=== PATIENT | female | born 1935 | race Caucasian/White ===

== ENCOUNTER 2019-02-27 14:57 | Emergency (ER) | payer MEDICARE, BC ==
[2019-02-27 15:40] VITALS: BP 121/81; PULSE 99
[2019-02-27] MEDS ORDERED: HYDROmorphone 0.5 MG/0.5 ML Syringe IM ONE (15:50)
--- NOTE | 2019-02-27 16:42 | CT ---
Head CT Technique: Multiple axial sections through the brain were obtained. Intravenous contrast was not utilized. Comparison: Prior head CT study of 08/05/1915. Findings: Ventricles along with basal cisterns and sulci over the convexities are mildly prominent. Mild areas of diminished density are scattered within the periventricular and subcortical white matter which are most likely due to small vessel ischemic demyelination change. No other abnormal parenchymal densities are seen. No evidence of intracranial hemorrhage. No midline shift or mass effect is seen. Atherosclerotic calcification is seen within the carotid siphon. Mastoid sinuses that are seen appear clear. Visualized paranasal sinuses shows an air-fluid level within the left maxillary sinus. No acute calvarial abnormality is seen. Impression: 1. Air-fluid level within the left maxillary sinus. This can relate to sinusitis as well as retained secretions. Please correlate if patient has any infectious symptoms. If no infectious symptoms are present, this is most likely incidental. 2. Mild senescent change as noted above which is similar to prior head CT study. 3. No acute intracranial abnormality is identified. Diagnostic code #3
--- NOTE | 2019-02-27 16:45 | CT ---
CT cervical spine Technique: Multiple axial sections were obtained from above the C1 level inferiorly through the mid T2 level. Reconstructed sagittal and coronal images were reviewed. Findings: Degenerative change is noted between the dens and anterior arch of C1. Mild disc space narrowing at C4-5 with severe disc space narrowing at C5-6 and moderate to severe disc space narrowing at C6-7. Posterior osteophytes are seen at C4-5 through C6-7. Anterior osteophytes are noted at the C3-4 level through the C6-7 level. Mild ligamentum nuchal calcification is seen. Degenerative change is noted throughout the apophyseal joints. Moderate right-sided neural foraminal stenosis is noted at C4-5. Severe bilateral neural foraminal stenosis is noted at C5-6. Moderate right-sided neural foraminal stenosis is noted at C6-7. Mild central canal stenosis is noted at C5-6. No fracture is seen. No abnormal subluxation is noted. Impression: 1. Degenerative change as noted above. Nothing acute is appreciated on CT study of the cervical spine. Diagnostic code #2
[2019-02-27] MEDS ORDERED: Sodium Chloride 0.9% 10 ML Syringe FLUSH PRN (16:47)
[2019-02-27] MEDS ORDERED: Acetaminophen/HYDROcodone 325-5 MG Tab PO ONE (16:48)
--- NOTE | 2019-02-27 16:48 | CT ---
CT facial bones Technique: Multiple axial sections through the facial bones were obtained. Reconstructed coronal and sagittal images were reviewed. Findings: Degenerative change is noted within both temporomandibular joints. Air-fluid level again is noted within the dependent left maxillary sinus. Other paranasal sinuses are clear. Right and left globes are symmetric. No retrobulbar are abnormality is seen. No facial bone fracture is identified. Impression: 1. Small air-fluid level within the left maxillary sinus. 2. Degenerative change within the temporomandibular joints. 3. No acute bony abnormality is identified on CT study of the facial bones. Diagnostic code #2
--- NOTE | 2019-02-27 16:51 | CR ---
Chest: PA and lateral views of the chest were obtained. Comparison: No prior chest x-ray is available. Heart size is slightly enlarged. Tortuous thoracic aorta is seen. Lungs are hyperinflated compatible with emphysematous change. No acute parenchymal change is seen. Minimal scoliosis is noted. Osteopenia is present. Impression: 1. Emphysematous change. Slight cardiomegaly and tortuous thoracic aorta. 2. Nothing acute is otherwise seen on 2 view chest x-ray. Diagnostic code #2
--- NOTE | 2019-02-27 16:51 | CR ---
Left shoulder: 3 views of left shoulder were obtained. Comparison: No prior left shoulder exam. Acromioclavicular joint appears within normal limits. Glenohumeral joint shows minimal inferior spurring off the inferior and medial humeral head. No fracture, dislocation or other bony abnormality is seen. No abnormal soft tissue calcifications are seen. Impression: 1. Minimal degenerative change. Left shoulder study is otherwise unremarkable. Diagnostic code #2
--- NOTE | 2019-02-27 18:07 | EDM.PDOC ---
ED HPI GENERAL MEDICAL PROBLEM - General Chief Complaint: Head Injury Stated Complaint: FALL Time Seen by Provider: 02/27/19 15:47 Source of Information: Reports: Patient, Family History Limitations: Reports: No Limitations - History of Present Illness INITIAL COMMENTS - FREE TEXT/NARRATIVE: The patient presents with a fall. She was out working in her yard and she fell and landed on her left side. She did hit her head. She had no LOC. She does have neck pain. She also has pain in her left shoulder and left chest. She has no abdominal pain, hip or leg pain. She tripped and fell today. Onset: Sudden Duration: Minutes: Location: Reports: Head, Neck, Chest, Upper Extremity, Left (Shoulder) Quality: Reports: Sharp Severity: Moderate Improves with: Reports: None Worsens with: Reports: None Associated Symptoms: Reports: Chest Pain, Headaches. Denies: Cough, Fever/ Chills, Nausea/Vomiting, Shortness of Breath Left Chest Pain Score (Numeric/FACES): 8 Face/Facial Pain Score (Numeric/FACES): 9 - Related Data Allergies Allergy/AdvReac Type Severity Reaction Status Date / Time codeine Allergy Blurred Verified 02/27/19 15:42 Vision sulfamethoxazole Allergy Cannot Verified 08/14/15 20:49 [From Bactrim] Remember trimethoprim [From Bactrim] Allergy Cannot Verified 08/14/15 20:49 Remember Home Meds: Home Meds Ascorbate Calcium/Bioflavonoid [Marjan-C 500 MG] 500 - 1,000 mg PO DAILY [History] Aspirin 81 mg PO DAILY 08/14/15 [History] Biotin 10,000 mcg PO DAILY 08/14/15 [History] Calcium/Magnesium/Vit D3 [Calcium 500 MG] 500 mg PO DAILY 08/14/15 [History] Cholecalciferol (Vitamin D3) [Vitamin D3] 4,000 unit PO DAILY 08/14/15 [History] Cyanocobalamin (Vitamin B-12) [Vitamin B12] 2,500 mcg PO DAILY 08/14/15 [History ] Diltiazem HCl [Diltiazem 24Hr Cd] 120 mg PO DAILY 08/14/15 [History] Forteo 20 mg IM DAILY 08/14/15 [History] Ibuprofen 200 mg PO ONCALL PRN 08/14/15 [History] Krill/[place]-3/Dha/Epa/Lipids [Krill Oil 300 mg Softgel] 600 mg PO DAILY [History] L.acidoph,Paracasei, B.lactis [Probiotic] 4 - 10 unit PO DAILY 08/14/15 [History ] Levothyroxine 56 mcg PO DAILY 08/14/15 [History] Levothyroxine 112 mcg PO DAILY 08/14/15 [History] Lutein/Minerals/Vit A,C & E [Ocuvite] 1 tab PO DAILY 08/14/15 [History] Magnesium 200 mg PO DAILY 08/14/15 [History] Orphenadrine [Norflex] 1 tab PO Q12H #20 tab.er 08/14/15 [Rx] Pyridoxine HCl [Vitamin B-6] 100 mg PO DAILY 08/14/15 [History] Sennosides/Docusate Sodium [Senna-S Tablet] 1 - 2 tab PO DAILY PRN 08/14/15 [ History] Turmeric [Curcumin] 750 mg PO DAILY 08/14/15 [History] Warfarin [Coumadin] 2.5 mg PO DAILY 08/14/15 [History] Warfarin [Coumadin] 5 mg PO DAILY 08/14/15 [History] HYDROmorphone [Dilaudid] 2 mg PO Q6H PRN #10 tab 02/27/19 [Rx] Past Medical History HEENT History: Reports: Impaired Vision, Macular Degeneration Cardiovascular History: Reports: Afib, Arrhythmia, CAD, Hypertension Musculoskeletal History: Reports: Other (See Below) Other Musculoskeletal History: left knee fracture/patella-surgery Psychiatric History: Reports: Depression Endocrine/Metabolic History: Reports: Hypothyroidism - Past Surgical History GI Surgical History: Reports: Appendectomy, Colonoscopy Other GI Surgeries/Procedures: colon cancer runs ini the family; has polyps in the past Female Surgical History: Reports: Hysterectomy Musculoskeletal Surgical History: Reports: Arthroscopic Knee Social & Family History - Tobacco Use Smoking Status *Q: Never Smoker - Caffeine Use Caffeine Use: Reports: Coffee - Alcohol Use Days Per Week of Alcohol Use: 7 Number of Drinks Per Day: 1 Total Drinks Per Week: 7 - Recreational Drug Use Recreational Drug Use: No - Living Situation & Occupation Living situation: Reports: Alone Occupation: Retired ED ROS GENERAL - Review of Systems Review Of Systems: See Below Constitutional: Reports: No Symptoms HEENT: Reports: No Symptoms Respiratory: Reports: No Symptoms Cardiovascular: Reports: No Symptoms Endocrine: Reports: No Symptoms GI/Abdominal: Reports: No Symptoms : Reports: No Symptoms Musculoskeletal: Reports: Shoulder Pain (Left) ED EXAM, HEAD INJURY - Physical Exam Exam: See Below Exam Limited By: No Limitations General Appearance: Alert, No Apparent Distress Head: Normocephalic, Other (Superficial laceration to the left medial nose and upper eyelid) Ears: Normal External Exam Nose: Normal Inspection Neck: Tenderness (Moderate ) Respiratory: No Respiratory Distress, Lungs Clear, Normal Breath Sounds Cardiovascular: Regular Rate, Rhythm, No Edema, No Murmur, Other (Pain upon palpation to the left chest) GI/Abdominal Exam: Normal Bowel Sounds, Soft, Non-Tender, No Organomegaly Extremities: Other (Pain upon palpation to the left shoulder. ) Course - Vital Signs Last Recorded V/S: Last Vital Signs Temp 98.0 F 02/27/19 15:34 Pulse 99 02/27/19 15:34 Resp 20 02/27/19 15:34 BP 121/81 02/27/19 15:34 Pulse Ox 95 02/27/19 15:34 - Orders/Labs/Meds Orders: Active Orders 24 hr Category Date Time Status Cardiac Monitoring [RC] . DIRECTED Care 02/27/19 16:47 Active EKG Documentation Completion [RC] STAT Care 02/27/19 16:48 Active Peripheral IV Care [RC] . DIRECTED Care 02/27/19 16:48 Active Sodium Chloride 0.9% [Saline Flush] Med 02/27/19 16:47 Active 10 ml FLUSH ASDIRECTED PRN Peripheral IV Insertion Adult [OM.PC] Stat Oth 02/27/19 16:47 Ordered Medication Orders Sodium Chloride (Saline Flush) 10 ml FLUSH ASDIRECTED PRN PRN Reason: Keep Vein Open Meds: Medications Generic Name Dose Route Start Last Admin Trade Name Freq PRN Reason Stop Dose Admin Sodium Chloride 10 ml 02/27/19 16:47 Saline Flush FLUSH ASDIRECTED PRN Keep Vein Open Discontinued Medications Generic Name Dose Route Start Last Admin Trade Name Freq PRN Reason Stop Dose Admin Hydrocodone Bitart/Acetaminophen 1 tab 02/27/19 16:48 [place] 325-5 Mg PO 02/27/19 16:49 ONETIME ONE Hydromorphone HCl 0.5 mg 02/27/19 15:50 Dilaudid IM 02/27/19 15:51 ONETIME ONE - Re-Assessments/Exams Free Text/Narrative Re-Assessment/Exam: 02/27/19 18:[address] of the head, facial bones, cervical spine and x-ray of her shoulder and chest. The CT of her head, neck, and facial bones look good. Her CXR and shoulder x-ray look good. She did go into a fast heart rhythm and got anxious. I ordered an EKG and it showed sinus tachycardia. She is not back in A-fib. I was going to do labs but she is doing better. Departure - Departure Time of Disposition: 18:15 Disposition: Home, Self-Care 01 Condition: Good Clinical Impression: Superficial laceration of face Fall Qualifiers: Encounter type: initial encounter Qualified Code(s): W19.XXXA - Unspecified fall, initial encounter Contusion of left shoulder Qualifiers: Encounter type: initial encounter Qualified Code(s): S40.012A - Contusion of left shoulder, initial encounter Chest wall contusion Qualifiers: Encounter type: initial encounter Laterality: left Qualified Code(s): S20.212A - Contusion of left front wall of thorax, initial encounter - Discharge Information *PRESCRIPTION DRUG MONITORING PROGRAM REVIEWED*: No *COPY OF PRESCRIPTION DRUG MONITORING REPORT IN PATIENT ELLY: No Prescriptions: HYDROmorphone [Dilaudid] 2 mg PO Q6H PRN #10 tab PRN Reason: Pain Referrals: Adolph Jasmine MD [Primary Care Provider] - 1 Week Additional Instructions: Clean the wounds 2 times per day and apply antibiotic ointment after. Take motrin for pain. If that does not help, try the hydromorphone. Please return if you are worse. - My Orders Last 24 Hours: My Active Orders 02/27/19 16:47 Cardiac Monitoring [RC] . DIRECTED Sodium Chloride 0.9% [Saline Flush] 10 ml FLUSH ASDIRECTED PRN Peripheral IV Insertion Adult [OM.PC] Stat 02/27/19 16:48 EKG Documentation Completion [RC] STAT Peripheral IV Care [RC] . DIRECTED - Assessment/Plan Last 24 Hours: My Active Orders 02/27/19 16:47 Cardiac Monitoring [RC] . DIRECTED Sodium Chloride 0.9% [Saline Flush] 10 ml FLUSH ASDIRECTED PRN Peripheral IV Insertion Adult [OM.PC] Stat 02/27/19 16:48 EKG Documentation Completion [RC] STAT Peripheral IV Care [RC] . DIRECTED
== END 2019-02-27 19:10 | disposition home or self-care (01) ==
LOC: JD.ED 14:57
DX: S01.21XA Laceration without foreign body of nose, initial encounter (principal); S01.112A Laceration without foreign body of left eyelid and periocular area, initial encounter; S40.012A Contusion of left shoulder, initial encounter; S20.212A Contusion of left front wall of thorax, initial encounter; R00.0 Tachycardia, unspecified; I25.10 Atherosclerotic heart disease of native coronary artery without angina pectoris; I10 Essential (primary) hypertension; E03.9 Hypothyroidism, unspecified; Z79.01 Long term (current) use of anticoagulants; Z79.82 Long term (current) use of aspirin; Z79.890 Hormone replacement therapy; Z79.899 Other long term (current) drug therapy; Z88.2 Allergy status to sulfonamides; Z88.5 Allergy status to narcotic agent; W01.0XXA Fall on same level from slipping, tripping and stumbling without subsequent striking against object, initial encounter; Y93.89 Activity, other specified; Y92.007 Garden or yard of unspecified non-institutional (private) residence as the place of occurrence of the external cause
CPT/HCPCS: 70450; 70450-26; 70486; 70486-26; 71046; 71046-26; 72125; 72125-26; 73030-26-LT; 73030-LT; 93005; 99283; 99284-25

== ENCOUNTER 2019-05-29 18:32 | Emergency (ER) | payer MEDICARE, BC ==
[2019-05-29 18:51] VITALS: BP 159/86; PULSE 84
--- NOTE | 2019-05-29 20:01 | EDM.PDOC ---
ED HPI GENERAL MEDICAL PROBLEM - General Chief Complaint: Gastrointestinal Problem Stated Complaint: VOMITING BLOOD COLD/CHILLS Time Seen by Provider: 05/29/19 19:09 Source of Information: Reports: Patient, Family (2 men, 1 woman) History Limitations: Reports: No Limitations - History of Present Illness INITIAL COMMENTS - FREE TEXT/NARRATIVE: Mrs. Black is an 83 year old woman with a past medical history significant for atrial fibrillation (she is unsure if it is chronic or paroxysmal), and GERD untreated for the past 5 years, who states that she experiences nausea without actual emesis every morning, including this morning. When she feels nauseated, it causes saliva to accumulate in her mouth. She states that she felt cold just before 17:00 this evening, then redeveloped nausea around 17:15. She noticed that her saliva looked bloody. No prior similar episodes. The patient has not had any pain. The patient reports that she often feels like food is getting stuck in her esophagus for the past 2 years. She saw a colorectal surgeon in 2018, and an EGD and colonoscopy were performed, the patient does not recall what was found, or what therapy was recommended. The colorectal surgeon may have recommended surgery, however, the patient shows no treatment. The patient has an appointment to follow-up with a colorectal surgeon this coming Thursday or , 06/01/2019 or 06/02/2019. The patient reports GERD-like symptoms, including an acid taste coming all the way up into her throat, on and off. She also reports that her colon has been spasming recently. The patient is on Coumadin for her atrial fibrillation. Her INR was last checked on 05/13/2019. She states that she underwent a cardiac ablation for A- fib in 2013, but also states that it was done transesophagealy, with no venous or arterial catheters. She denies that what she underwent was a transesophageal echocardiogram. The patient does not actually have hypertension, but takes atenolol on an as- needed basis when her blood pressure is elevated. The patient's PCP is Dr. Adolph Jasmine. Her Colorectal Surgeon is Dr. Taurus Carty. Her [place] Bedspread Seamer is Dr. Ashlee Christie. Her [facility] Bedspread Seamer is Dr. Randy Mayfield. - Related Data Allergies Allergy/AdvReac Type Severity Reaction Status Date / Time codeine Allergy Blurred Verified 05/29/19 18:50 Vision sulfamethoxazole Allergy Cannot Verified 05/29/19 18:50 [From Bactrim] Remember trimethoprim [From Bactrim] Allergy Cannot Verified 05/29/19 18:50 Remember Home Meds: Home Meds Ascorbate Calcium/Bioflavonoid [Marjan-C 500 MG] 500 - 1,000 mg PO DAILY [History] Aspirin 81 mg PO DAILY 08/14/15 [History] Biotin 10,000 mcg PO DAILY 08/14/15 [History] Calcium/Magnesium/Vit D3 [Calcium 500 MG] 500 mg PO DAILY 08/14/15 [History] Cholecalciferol (Vitamin D3) [Vitamin D3] 4,000 unit PO DAILY 08/14/15 [History] Cyanocobalamin (Vitamin B-12) [Vitamin B12] 2,500 mcg PO DAILY 08/14/15 [History ] Diltiazem HCl [Diltiazem 24Hr Cd] 120 mg PO DAILY 08/14/15 [History] Forteo 20 mg IM DAILY 08/14/15 [History] Ibuprofen 200 mg PO ONCALL PRN 08/14/15 [History] Krill/[place]-3/Dha/Epa/Lipids [Krill Oil 300 mg Softgel] 600 mg PO DAILY [History] L.acidoph,Paracasei, B.lactis [Probiotic] 4 - 10 unit PO DAILY 08/14/15 [History ] Levothyroxine 56 mcg PO DAILY 08/14/15 [History] Levothyroxine 112 mcg PO DAILY 08/14/15 [History] Lutein/Minerals/Vit A,C & E [Ocuvite] 1 tab PO DAILY 08/14/15 [History] Magnesium 200 mg PO DAILY 08/14/15 [History] Orphenadrine [Norflex] 1 tab PO Q12H #20 tab.er 08/14/15 [Rx] Pyridoxine HCl (Vitamin B6) [Vitamin B-6] 100 mg PO DAILY 08/14/15 [History] Sennosides/Docusate Sodium [Senna-S Tablet] 1 - 2 tab PO DAILY PRN 08/14/15 [ History] Turmeric [Curcumin] 750 mg PO DAILY 08/14/15 [History] Warfarin [Coumadin] 2.5 mg PO DAILY 08/14/15 [History] Warfarin [Coumadin] 5 mg PO DAILY 08/14/15 [History] HYDROmorphone [Dilaudid] 2 mg PO Q6H PRN #10 tab 02/27/19 [Rx] Past Medical History HEENT History: Reports: Macular Degeneration Cardiovascular History: Reports: Afib, High Cholesterol (untreated) Gastrointestinal History: Reports: Colon Polyp, Diverticulosis, GERD (untreated) Genitourinary History: Reports: Urinary Incontinence (stress incontinence) Musculoskeletal History: Reports: Fracture (left knee + patella), Osteoarthritis Endocrine/Metabolic History: Reports: Hypothyroidism - Past Surgical History Cardiovascular Surgical History: Reports: Cardiac Ablation (Unclear. May have been a MOMO.) GI Surgical History: Reports: Appendectomy, Colonoscopy (x 7), EGD (x 3) Female Surgical History: Reports: Hysterectomy (complete) Musculoskeletal Surgical History: Reports: Knee Replacement (left), ORIF (left knee) Social & Family History - Tobacco Use Smoking Status *Q: Never Smoker - Caffeine Use Caffeine Use: Reports: Coffee - Alcohol Use Alcohol Use History: Yes Alcohol Use Frequency: Socially - Recreational Drug Use Recreational Drug Use: No - Living Situation & Occupation Living situation: Reports: , Alone Occupation: Retired ED ROS GENERAL - Review of Systems Review Of Systems: Comprehensive ROS is negative, except as noted in HPI. ED EXAM, GENERAL - Physical Exam Exam: See Below Exam Limited By: No Limitations General Appearance: Alert, WD/WN, No Apparent Distress Eye Exam: Bilateral Eye: EOMI, Normal Inspection Ears: Normal External Exam, Normal Canal, Hearing Grossly Normal, Normal TMs Nose: Normal Inspection, Normal Mucosa, No Blood Throat/Mouth: Normal Inspection, Normal Lips, Normal Teeth, Normal Gums, Normal Oropharynx (no visible blood or source of bleeding), Normal Voice, No Airway Compromise Head: Atraumatic, Normocephalic Neck: Normal Inspection, Supple, Non-Tender, Full Range of Motion. No: Lymphadenopathy (L), Lymphadenopathy (R) Respiratory/Chest: No Respiratory Distress, Lungs Clear, Normal Breath Sounds, No Accessory Muscle Use. No: Decreased Breath Sounds, Crackles, Rhonchi, Wheezing, Stridor, Prolonged Expiration Cardiovascular: Normal Peripheral Pulses, Regular Rate, Rhythm, No Edema, No Gallop, No JVD, No Murmur, No Rub Peripheral Pulses: 4+: Radial (L), Radial (R) GI/Abdominal: Normal Bowel Sounds, Soft, Non-Tender, No Organomegaly, No Distention, No Abnormal Bruit, No Mass (Female) Exam: Deferred Rectal (Female) Exam: Deferred Back Exam: Normal Inspection, Full Range of Motion, NT Extremities: Normal Inspection, Normal Range of Motion, No Pedal Edema, Normal Capillary Refill Neurological: Alert, Oriented, Normal Cognition, No Motor/Sensory Deficits Psychiatric: Normal Affect Skin Exam: Warm, Dry, Intact, Normal Color, No Rash Course - Vital Signs Last Recorded V/S: Last Vital Signs Temp 36.9 C 05/29/19 18:46 Pulse 84 05/29/19 18:46 Resp 16 05/29/19 18:46 BP 159/86 H 05/29/19 18:46 Pulse Ox 98 05/29/19 18:46 - Orders/Labs/Meds Labs: Laboratory Tests 05/29/19 05/29/19 Range/Units 20:22 20:22 WBC 7.42 (3.98-10.04) K/mm3 RBC 4.48 (3.98-5.22) M/mm3 Hgb 13.8 (11.2-15.7) gm/dl Hct 41.3 (34.1-44.9) % MCV 92.2 (79.4-94.8) fl MCH 30.8 (25.6-32.2) pg MCHC 33.4 (32.2-35.5) g/dl RDW Std Deviation 51.5 H (36.4-46.3) fL Plt Count 251 (182-369) K/mm3 MPV 9.1 L (9.4-12.3) fl Neut % (Auto) 71.8 H (34.0-71.1) % Lymph % (Auto) 16.0 L (19.3-51.7) % [place] % (Auto) 7.7 (4.7-12.5) % Eos % (Auto) 3.9 (0.7-5.8) Baso % (Auto) 0.5 (0.1-1.2) % Neut # (Auto) 5.32 (1.56-6.13) K/mm3 Lymph # (Auto) 1.19 (1.18-3.74) K/mm3 [place]ila # (Auto) 0.57 H (0.24-0.36) K/mm3 Eos # (Auto) 0.29 (0.04-0.36) K/mm3 Baso # (Auto) 0.04 (0.01-0.08) K/mm3 PT 21.9 H (9.7-12.0) SECONDS INR 2.10 - Re-Assessments/Exams Free Text/Narrative Re-Assessment/Exam: 05/29/19 19:58 On HEENT examination, I found no abnormalities, including no blood in her oropharynx. I suspect, based on her history, that she has GERD which caused some damage to some friable mucous membranes in her posterior oropharynx, leading to some bloody saliva. It is also possible that the patient pulled some bloody mucus from her sinuses, although she denies having recent sinus pressure or congestion. The patient states that she felt nauseated, but specifically denies having any emesis, therefore I do not suspect an esophageal or gastric bleed. For today's purposes, I have ordered an INR and CBC, just to make sure that her Coumadin is not supratherapeutic, and that she is not inordinately anemic. 05/29/19 22:46 Test results discussed with the patient, one of the earlier men, and the woman. The patient CBC is unremarkable. Her INR is therapeutic at 2.1. As above, I suspect that the blood that the patient saw in her sputum is due to injury to friable tissue in her posterior oropharynx, related to GERD. I am recommending that she start taking an H2 robbi, such as famotidine, once or twice a day. I explained the difference between antacids, H2 blockers, and PPIs. The patient will be following up with Dr. Carty this coming week. Departure - Departure Time of Disposition: 22:48 Disposition: Home, Self-Care 01 Condition: Good Clinical Impression: GERD (gastroesophageal reflux disease) - Discharge Information *PRESCRIPTION DRUG MONITORING PROGRAM REVIEWED*: Not Applicable *COPY OF PRESCRIPTION DRUG MONITORING REPORT IN PATIENT ELLY: Not Applicable Instructions: Gastroesophageal Reflux Disease, Adult, [id number] Referrals: Taurus Carty MD [Ordering Only Provider] - Adolph Jasmine MD [Primary Care Provider] - Ashlee Christie MD [Ordering Only Provider] - Randy Mayfield DO [Ordering Only Provider] - Forms: ED Department Discharge Additional Instructions: You were seen in the emergency room after developing nausea and bloody saliva. Work-up in the ER included a CBC and an INR. Your CBC was unremarkable. You are not anemic. Your INR was therapeutic at 2.1. Based on your history and physical examination, the cause of your bloody saliva was most likely due to acid reflux (GERD) causing damage to some mucous membranes in your oropharynx. As discussed, we recommend that you start taking an antacid medicine, such as famotidine (Pepcid) either once or twice a day, on a regular basis. Follow-up with the Colorectal Surgeon Dr. Taurus Carty at your previously scheduled appointment this coming Thursday or . If any other problems, please do not hesitate to return to the ER. Sepsis Event Note - Evaluation Sepsis Screening Result: No Definite Risk - Focused Exam Date Exam was Performed: 05/31/19 Time Exam was Performed: 01:09
== END 2019-05-29 23:00 | disposition home or self-care (01) ==
LOC: JD.ED 18:32
DX: K21.9 Gastro-esophageal reflux disease without esophagitis (principal); I48.91 Unspecified atrial fibrillation; E78.00 Pure hypercholesterolemia, unspecified; M19.90 Unspecified osteoarthritis, unspecified site; E03.9 Hypothyroidism, unspecified; Z90.49 Acquired absence of other specified parts of digestive tract; Z88.5 Allergy status to narcotic agent; Z88.2 Allergy status to sulfonamides; Z88.1 Allergy status to other antibiotic agents; Z79.82 Long term (current) use of aspirin; Z79.01 Long term (current) use of anticoagulants; Z79.899 Other long term (current) drug therapy
CPT/HCPCS: 36415; 85025; 85610; 99282; 99284

== ENCOUNTER 2020-08-19 15:32 | Emergency (ER) | payer MEDICARE, BC ==
[2020-08-19 16:04] VITALS: BP 151/82; PULSE 86
--- NOTE | 2020-08-19 17:39 | EDM.PDOC ---
ED HPI GENERAL MEDICAL PROBLEM - General Chief Complaint: Lower Extremity Injury/Pain Stated Complaint: TROUBLES WALKING Time Seen by Provider: 08/19/20 15:50 Source of Information: Reports: Patient History Limitations: Reports: No Limitations - History of Present Illness INITIAL COMMENTS - FREE TEXT/NARRATIVE: 84-year-old female presents to the emergency department today with complaints of a 1 week history of bilateral leg weakness and cramping. She initially reports a lengthy history of other illnesses after receiving her second Covid vaccination on July 18 however she states that the leg weakness started about a week ago. Over the course of the last week she has not had new onset cough, shortness of breath, fever, chills, nausea, vomiting or diarrhea. She has not had any chest pain or palpitations. It is difficult to get a full history on her as she keeps reporting back to all of her symptoms since her July 18 Covid vaccination. She initially describes the pain in her legs as severe cramping with ambulation however then she states it feels like Jell-O greater in the right leg than the left. She also states that her right knee seems to be giving out while she is ambulating as well. She then goes back to reporting that her left knee has issues due to a knee surgery that this hospital messed up and would not follow up and see her for. Today she is actually requesting to be ruled out for a blood clot of her right lower extremity as it is painful to touch and there is increased swelling noted as well as bruising to the anterior eli radiating down into the right medial ankle. She currently does take Coumadin however due to intermittent atrial fibrillation. She denies any history of smoking. Patient is also requesting an x-ray of her right knee. Right Lower Leg Pain Score (Numeric/FACES): 5 - Related Data Allergies Allergy/AdvReac Type Severity Reaction Status Date / Time codeine Allergy Blurred Verified 08/19/20 15:48 Vision sulfamethoxazole Allergy Cannot Verified 08/19/20 15:48 [From Bactrim] Remember trimethoprim [From Bactrim] Allergy Cannot Verified 08/19/20 15:48 Remember Home Meds: Home Meds Ascorbate Calcium/Bioflavonoid [Marjan-C 500 MG] 500 - 1,000 mg PO DAILY 08/14/15 [History] Aspirin 81 mg PO DAILY 08/14/15 [History] Biotin 10,000 mcg PO DAILY 08/14/15 [History] Calcium/Magnesium/Vit D3 [Calcium 500 MG] 500 mg PO DAILY 08/14/15 [History] Cholecalciferol (Vitamin D3) [Vitamin D3] 4,000 unit PO DAILY 08/14/15 [History] Cyanocobalamin (Vitamin B-12) [Vitamin B12] 2,500 mcg PO DAILY 08/14/15 [History] Diltiazem HCl [Diltiazem 24Hr Cd] 120 mg PO DAILY 08/14/15 [History] Forteo 20 mg IM DAILY 08/14/15 [History] Ibuprofen 200 mg PO ONCALL PRN 08/14/15 [History] Krill/Simms-3/Dha/Epa/Lipids [Krill Oil 300 mg Softgel] 600 mg PO DAILY 08/14/15 [History] L.acidoph,Paracasei, B.lactis [Probiotic] 4 - 10 unit PO DAILY 08/14/15 [History] Levothyroxine 56 mcg PO DAILY 08/14/15 [History] Levothyroxine 112 mcg PO DAILY 08/14/15 [History] Lutein/Minerals/Vit A,C & E [Ocuvite] 1 tab PO DAILY 08/14/15 [History] Magnesium 200 mg PO DAILY 08/14/15 [History] Orphenadrine [Norflex] 1 tab PO Q12H #20 tab.er 08/14/15 [Rx] Pyridoxine HCl (Vitamin B6) [Vitamin B-6] 100 mg PO DAILY 08/14/15 [History] Sennosides/Docusate Sodium [Senna-S Tablet] 1 - 2 tab PO DAILY PRN 08/14/15 [History] Turmeric [Curcumin] 750 mg PO DAILY 08/14/15 [History] Warfarin [Coumadin] 2.5 mg PO DAILY 08/14/15 [History] Warfarin [Coumadin] 5 mg PO DAILY 08/14/15 [History] HYDROmorphone [Dilaudid] 2 mg PO Q6H PRN #10 tab 02/27/19 [Rx] Past Medical History HEENT History: Reports: Cataract, Impaired Vision, Macular Degeneration Other HEENT History: wears eyeglasses Cardiovascular History: Reports: Afib, High Cholesterol Respiratory History: Reports: Pneumonia, Recurrent Other Respiratory History: states has scar tissue. 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: Musculoskeletal History: Reports: Fracture, Osteoarthritis Other Musculoskeletal History: left knee fracture/patella-surgery Psychiatric History: Reports: Depression Endocrine/Metabolic History: Reports: Hypothyroidism Hematologic History: Reports: Anemia - Infectious Disease History Infectious Disease History: Reports: Chicken Pox, Measles, Shingles - Past Surgical History HEENT Surgical History: Reports: Cataract Surgery Cardiovascular Surgical History: Reports: Cardiac Ablation GI Surgical History: Reports: Appendectomy, Colonoscopy, EGD Other GI Surgeries/Procedures: colon cancer runs ini the family; has polyps in the past Female Surgical History: Reports: Hysterectomy Musculoskeletal Surgical History: Reports: Knee Replacement, ORIF Other Musculoskeletal Surgeries/Procedures:: has post to L) lower leg. Social & Family History - Tobacco Use Tobacco Use Status *Q: Never Tobacco User Second Hand Smoke Exposure: No - Caffeine Use Caffeine Use: Reports: Coffee - Alcohol Use Days Per Week of Alcohol Use: 7 Number of Drinks Per Day: 1 Total Drinks Per Week: 7 - Recreational Drug Use Recreational Drug Use: No - Living Situation & Occupation Living situation: Reports: , Alone Occupation: Retired Review of Systems - Review of Systems Review Of Systems: See Below Constitutional: Reports: Chills (And second Covid vaccination), Weakness (Since second Covid vaccination). Denies: Diaphoresis, Fever Eyes: Reports: No Symptoms Ears: Reports: No Symptoms, Other (History of shingles since second Covid vaccination) Nose: Reports: No Symptoms Mouth/Throat: Reports: No Symptoms Respiratory: Reports: No Symptoms. Denies: Shortness of Breath, Cough, Sputum Cardiovascular: Reports: Edema (Right lower extremity since Covid vaccination). Denies: Chest Pain, Lightheadedness, Palpitations GI/Abdominal: Reports: Decreased Appetite (Since Covid vaccination), Nausea. Denies: Abdominal Pain, Constipation, Vomiting Genitourinary: Reports: No Symptoms Musculoskeletal: Reports: Muscle Pain (Bilateral lower extremities since Covid vaccination) Skin: Reports: Bruising (Right lower extremity from proximal eli radiating down to right medial ankle) Neurological: Reports: No Symptoms Psychiatric: Reports: No Symptoms ED EXAM, GENERAL - Physical Exam Exam: See Below Exam Limited By: No Limitations General Appearance: Alert, WD/WN, Anxious Ears: Normal External Exam. No: Hearing Grossly Normal (Hard of hearing hearing aids) Nose: Normal Inspection Throat/Mouth: Normal Inspection, Normal Lips, Normal Voice, No Airway Compromise Head: Atraumatic, Normocephalic Neck: Normal Inspection, Supple Respiratory/Chest: No Respiratory Distress, Lungs Clear, Normal Breath Sounds, No Accessory Muscle Use, Chest Non-Tender Cardiovascular: Normal Peripheral Pulses, Regular Rate, Rhythm, No Murmur. No: No Edema (Pedal edema noted to right foot and ankle 1+.) Peripheral Pulses: 2+: Radial (L), Radial (R) GI/Abdominal: Normal Bowel Sounds, Soft, Non-Tender, No Distention (Female) Exam: Deferred Rectal (Female) Exam: Deferred Back Exam: Normal Inspection, Full Range of Motion Extremities: Normal Inspection, Normal Range of Motion, Pedal Edema (1+ to the right lower extremity), Other (Oozing noted to right lower extremity from proximal fourth of tibia running medially down to the right ankle). No: Non- Tender (Right lower extremity exquisitely tender to palpation medial on the tibial area.) Neurological: Alert, Oriented, Normal Cognition Psychiatric: Normal Affect, Normal Mood Skin Exam: Warm, Dry, Intact, No Rash. No: Normal Color (Oozing noted to right lower extremity from proximal fourth of tibia running medially down to the right ankle) Lymphatic: No Adenopathy Course - Vital Signs Text/Narrative:: 84-year-old female with significant medical history and complaints specifically stemming from her second Covid vaccination that she received on July 18. However after sorting through her complaints she states that she is here due to increased pain, swelling, and bruising in her right lower extremity and she is concerned she may have a blood clot. Patient states that the swelling and bruising started over the course of the last couple of days and she denies any trauma to this lower extremity. She states that over the course the past week she has had difficulty walking due to significant cramping in both legs and has needed to use crutches to ambulate. She also states that she feels like her right knee is giving out and she hears a popping. I have ordered an ultrasound of the right lower extremity to rule out a DVT and an x-ray of the right knee and lab studies as she states she is having cramping to the lower extremities. Last Recorded V/S: Last Vital Signs Temp 98.4 F 08/19/20 15:45 Pulse 86 08/19/20 15:45 Resp 20 08/19/20 15:45 BP 151/82 H 08/19/20 15:45 Pulse Ox 97 08/19/20 15:45 - Orders/Labs/Meds Orders: Active Orders 24 hr Category Date Time Status Knee 3V Rt [CR] Stat Exams 08/19/20 16:28 Taken VL Duplex Lwr Ext Veins Ltd Rt [US] Stat Exams 08/19/20 16:27 Taken Labs: Laboratory Tests 08/19/20 08/19/20 Range/Units 17:05 17:05 WBC 7.77 (3.98-10.04) K/mm3 RBC 4.37 (3.98-5.22) M/mm3 Hgb 13.4 (11.2-15.7) gm/dl Hct 41.1 (34.1-44.9) % MCV 94.1 (79.4-94.8) fl MCH 30.7 (25.6-32.2) pg MCHC 32.6 (32.2-35.5) g/dl RDW Std Deviation 52.6 H (36.4-46.3) fL Plt Count 226 (182-369) K/mm3 MPV 9.4 (9.4-12.3) fl Neut % (Auto) 63.0 (34.0-71.1) % Lymph % (Auto) 19.8 (19.3-51.7) % [place] % (Auto) 11.6 (4.7-12.5) % Eos % (Auto) 5.0 (0.7-5.8) Baso % (Auto) 0.6 (0.1-1.2) % Neut # (Auto) 4.89 (1.56-6.13) K/mm3 Lymph # (Auto) 1.54 (1.18-3.74) K/mm3 [place] # (Auto) 0.90 H (0.24-0.36) K/mm3 Eos # (Auto) 0.39 H (0.04-0.36) K/mm3 Baso # (Auto) 0.05 (0.01-0.08) K/mm3 Sodium 142 (136-145) mEq/L Potassium 5.1 (3.5-5.1) mEq/L Chloride 105 (98-107) mEq/L Carbon Dioxide 27 (21-32) mEq/L Anion Gap 15.1 H (5-15) BUN 21 H (7-18) mg/dL Creatinine 1.1 H (0.55-1.02) mg/dL Est Cr Clr Drug Dosing 30.11 mL/min Estimated GFR (MDRD) 47 (>60) mL/min BUN/Creatinine Ratio 19.1 H (14-18) Glucose 103 (83-115) mg/dL Calcium 9.3 (8.5-10.1) mg/dL Magnesium 2.1 (1.8-2.4) mg/dl Total Bilirubin 0.4 (0.2-1.0) mg/dL AST 25 (15-37) U/L ALT 24 (14-59) U/L Alkaline Phosphatase 70 (46-116) U/L Total Protein 7.3 (6.4-8.2) g/dl Albumin 3.6 (3.4-5.0) g/dl Globulin 3.7 gm/dL Albumin/Globulin Ratio 1.0 (1-2) - Re-Assessments/Exams Free Text/Narrative Re-Assessment/Exam: 08/19/20 17:39 V rad interpretation ultrasound duplex of the right lower extremity: No evidence of deep vein thrombosis. 08/19/20 17:40 Labs reveal a WBC of 7.77, hemoglobin 13.4, hematocrit 41.1, platelet count 226, chemistry reveals a sodium of 142, potassium of 5.1, chloride of 105, anion gap 15.1, BUN 21, creatinine 1.1, glucose 103, magnesium 2.1 08/19/20 17:43 Review of right knee x-ray with Dr. Diallo Pettit. Arthritic changes of patient appreciated. Patella is tracking medially due to weakness and vastus lateralis no other acute abnormalities are appreciated. 08/19/20 18:10 Test the patient's results with her and she will be discharged to home with recommendations that she follow-up with her primary care physician this week. Agreeable to this plan. Departure - Departure Time of Disposition: 18:10 Disposition: Home, Self-Care 01 Condition: Good Clinical Impression: Pain in right lower leg - Discharge Information Referrals: Adolph Jasmine MD [Primary Care Provider] - Forms: ED Department Discharge Additional Instructions: You were seen in the emergency department today with complaints of pain to both of your legs but increasing pain and bruising to your right lower extremity. You stated that you have been 1 week over the course of the last week and have needed to use crutches and your right leg has become exquisitely tender to touch. There is bruising noted however you do not recall any sort of trauma to that area. Ultrasound of the right lower extremity was negative for a blood clot. Your lab work was essentially unremarkable and your x-ray of your right knee just showed arthritic changes. Recommend that you follow-up with your primary care physician this week. Go home and rest and elevate your feet. Should your condition worsen or change do not hesitate returning to the emergency department. Sepsis Event Note (ED) - Evaluation Sepsis Screening Result: No Definite Risk - Focused Exam Vital Signs: Vital Signs Temp Pulse Resp BP Pulse Ox 08/19/20 15:45 98.4 F 86 20 151/82 H 97 - My Orders Last 24 Hours: My Active Orders 08/19/20 16:27 VL Duplex Lwr Ext Veins Ltd Rt [US] Stat 08/19/20 16:28 Knee 3V Rt [CR] Stat - Assessment/Plan Last 24 Hours: My Active Orders 08/19/20 16:27 VL Duplex Lwr Ext Veins Ltd Rt [US] Stat 08/19/20 16:28 Knee 3V Rt [CR] Stat
--- NOTE | 2020-08-20 08:13 | CR ---
Right knee: AP, lateral and sunrise patellar views were obtained of the right knee. No prior right knee study is available. Comparison: No right knee studies are available. Diffuse soft tissue varicosities are seen. Joint space narrowing which is moderately severe is seen within the lateral patellofemoral joint. Osteopenia is noted. No discrete joint effusion is seen. No acute fracture or other bony abnormality is noted. Mild vascular calcification is seen. Impression: 1. Soft tissue varicosities. 2. Joint space narrowing within the lateral patellofemoral joint. 3. Other findings believed to be incidental as noted above. Diagnostic code #2
--- NOTE | 2020-08-20 08:13 | US ---
Right lower extremity deep venous ultrasound: Duplex and color Doppler evaluation was obtained of the right common femoral, proximal greater saphenous, superficial femoral, popliteal, posterior tibial and peroneal veins. Left common femoral vein was also evaluated. Comparison: No prior right lower extremity venous ultrasound is available. Findings: Normal phasic flow, augmentation and compression is seen. Impression: 1. No evidence of deep venous thrombosis within the right lower extremity or within the left common femoral vein. Diagnostic code #1 I agree with preliminary report from [facility], finalized on 08/19/20, 6:30 PM CDT
== END 2020-08-19 18:45 | disposition home or self-care (01) ==
LOC: JD.ED 15:32
DX: M79.661 Pain in right lower leg (principal); I48.91 Unspecified atrial fibrillation; K21.9 Gastro-esophageal reflux disease without esophagitis; M19.90 Unspecified osteoarthritis, unspecified site; E03.9 Hypothyroidism, unspecified; Z88.5 Allergy status to narcotic agent; Z88.2 Allergy status to sulfonamides; Z88.1 Allergy status to other antibiotic agents; Z79.82 Long term (current) use of aspirin; Z79.01 Long term (current) use of anticoagulants
CPT/HCPCS: 36415; 73562-26-RT; 73562-RT; 80053; 83735; 85025; 93971-26-RT; 93971-RT; 99283; 99284-25

== ENCOUNTER 2021-06-24 22:44 | Emergency (ER) | payer MEDICARE, BC ==
[2021-06-24] MEDS ORDERED: LORazepam 2 MG/ML SDV IVPUSH STA (23:35)
[2021-06-25 02:40] VITALS: BP 148/81; PULSE 69
== END 2021-06-25 02:38 | disposition home or self-care (01) ==
LOC: JD.ED 22:44
DX: F41.9 Anxiety disorder, unspecified (principal); I44.0 Atrioventricular block, first degree; M19.90 Unspecified osteoarthritis, unspecified site; E03.9 Hypothyroidism, unspecified; Z88.5 Allergy status to narcotic agent; Z88.2 Allergy status to sulfonamides; Z79.82 Long term (current) use of aspirin; Z79.01 Long term (current) use of anticoagulants; Z79.899 Other long term (current) drug therapy
CPT/HCPCS: 36415; 71046; 80048; 83735; 84443; 84484; 85025; 85610; 93005; 96374; 99285; J2060

== ENCOUNTER 2022-03-15 10:14 | Emergency (ER) | payer MEDICARE, BC ==
[2022-03-15 10:39] VITALS: BP 154/81; PULSE 89
[2022-03-15] MEDS ORDERED: Diphtheria,Pertussis(Acell),Tetanus Vaccine 0.5 ML Syringe IM ONE (11:26)
== END 2022-03-15 12:10 | disposition home or self-care (01) ==
LOC: JD.ED 10:14
DX: S81.812A Laceration without foreign body, left lower leg, initial encounter (principal); I48.91 Unspecified atrial fibrillation; M19.90 Unspecified osteoarthritis, unspecified site; E03.9 Hypothyroidism, unspecified; Z23 Encounter for immunization; Z88.2 Allergy status to sulfonamides; Z88.5 Allergy status to narcotic agent; Z79.82 Long term (current) use of aspirin; Z79.899 Other long term (current) drug therapy; Z79.01 Long term (current) use of anticoagulants; W22.8XXA Striking against or struck by other objects, initial encounter; Y93.01 Activity, walking, marching and hiking; Y92.009 Unspecified place in unspecified non-institutional (private) residence as the place of occurrence of the external cause
CPT/HCPCS: 90471; 90715; 99282-25

== ENCOUNTER 2022-08-09 09:45 | Emergency (ER) | payer MEDICARE, BC ==
[2022-08-09] MEDS ORDERED: Aspirin 81 MG Tab.Chew PO ONE (12:53)
[2022-08-09] MEDS ORDERED: Sodium Chloride 0.9% 10 ML Syringe FLUSH PRN (12:53)
[2022-08-09 18:14] VITALS: BP 150/76; PULSE 82
== END 2022-08-09 16:45 | disposition home or self-care (01) ==
LOC: JD.ED 09:45
DX: S22.080A Wedge compression fracture of T11-T12 vertebra, initial encounter for closed fracture (principal); S22.030A Wedge compression fracture of third thoracic vertebra, initial encounter for closed fracture; S32.010A Wedge compression fracture of first lumbar vertebra, initial encounter for closed fracture; S00.83XA Contusion of other part of head, initial encounter; M25.512 Pain in left shoulder; R77.8 Other specified abnormalities of plasma proteins; I48.91 Unspecified atrial fibrillation; E78.00 Pure hypercholesterolemia, unspecified; Z88.1 Allergy status to other antibiotic agents; Z88.5 Allergy status to narcotic agent; Z79.82 Long term (current) use of aspirin; Z79.899 Other long term (current) drug therapy; Z79.01 Long term (current) use of anticoagulants; W18.09XA Striking against other object with subsequent fall, initial encounter
CPT/HCPCS: 36415; 70450; 71250; 72125; 73060; 73090; 74176; 80053; 84484; 85025; 85652; 86140; 93005; 99284; A9270

== ENCOUNTER 2022-08-15 05:36 | Emergency (ER) | payer MEDICARE, BC ==
[2022-08-15 06:07] VITALS: BP 165/76; PULSE 73
[2022-08-15 06:55] LABS: ESTIMATED GFR 55 mL/min (>60)
[2022-08-15] MEDS ORDERED: Ondansetron 4 MG Tab.DIS PO ONE (08:03)
[2022-08-15] MEDS ORDERED: Meclizine 12.5 MG Tab PO ONE (08:03)
== END 2022-08-15 10:06 | disposition still patient (30) ==
LOC: JD.ED 05:36
DX: R42 Dizziness and giddiness (principal); I48.91 Unspecified atrial fibrillation; M19.90 Unspecified osteoarthritis, unspecified site; E03.9 Hypothyroidism, unspecified; Z86.711 Personal history of pulmonary embolism; Z79.82 Long term (current) use of aspirin; Z79.899 Other long term (current) drug therapy; Z79.01 Long term (current) use of anticoagulants; Z88.1 Allergy status to other antibiotic agents; Z88.2 Allergy status to sulfonamides; Z88.5 Allergy status to narcotic agent
CPT/HCPCS: 36415; 70450; 80053; 84484; 85025; 85610; 93005; 99285; A9270; 93010; 99283

== ENCOUNTER 2022-09-29 10:00 | Emergency (ER) | payer MEDICARE, BC ==
[2022-09-29 10:09] VITALS: BP 148/119; PULSE 93
[2022-09-29] MEDS ORDERED: Lidocaine 1% 10 ML MDV INJECT ONE (11:08)
== END 2022-09-29 12:11 | disposition home or self-care (01) ==
LOC: JD.ED 10:00
DX: S01.81XA Laceration without foreign body of other part of head, initial encounter (principal); I48.91 Unspecified atrial fibrillation; E03.9 Hypothyroidism, unspecified; Z88.1 Allergy status to other antibiotic agents; Z88.2 Allergy status to sulfonamides; Z79.82 Long term (current) use of aspirin; Z79.01 Long term (current) use of anticoagulants; Z86.711 Personal history of pulmonary embolism; Z79.899 Other long term (current) drug therapy; W01.198A Fall on same level from slipping, tripping and stumbling with subsequent striking against other object, initial encounter; Y93.E3 Activity, vacuuming; Y92.009 Unspecified place in unspecified non-institutional (private) residence as the place of occurrence of the external cause
CPT/HCPCS: 12011; 99282; 99283; J3490

== ENCOUNTER 2022-10-24 13:24 | Emergency (ER) | payer MEDICARE, BC ==
[2022-10-24] MEDS ORDERED: Sodium Chloride 0.9% 10 ML Syringe FLUSH PRN (14:07)
[2022-10-24] MEDS ORDERED: Sodium Chloride 0.9% 500 ML IV ONE (14:15)
[2022-10-24 14:41] LABS: BASOPHILS ABSOLUTE AUTO 0.04 K/mm3 (0.01-0.08); BASOPHILS PERCENT AUTO 0.8 % (0.1-1.2); EOSINOPHILS PERCENT AUTO 5.7 (0.7-5.8); HEMATOCRIT 42.9 % (34.1-44.9); HEMOGLOBIN 14.2 gm/dl (11.2-15.7); IMMATURE GRAN ABSOLUTE AUTO 0.01 K/mm3 (0.00-0.10); IMMATURE GRAN PERCENT AUTO 0.2 % (<=1.0); LYMPHOCYTES ABSOLUTE AUTO 0.99 K/mm3 (1.18-3.74); LYMPHOCYTES PERCENT AUTO 18.7 % (19.3-51.7); MEAN CORPUSCULAR HEMOGLOBIN 31.7 pg (25.6-32.2); MEAN CORPUSCULAR HGB CONC 33.1 g/dl (32.2-35.5); MEAN CORPUSCULAR VOLUME 95.8 fl (79.4-94.8); MEAN PLATELET VOLUME 9.8 fl (9.4-12.3); MONOCYTES ABSOLUTE AUTO 0.47 K/mm3 (0.24-0.36); MONOCYTES PERCENT AUTO 8.9 % (4.7-12.5); NEUTROPHILS ABSOLUTE AUTO 3.49 K/mm3 (1.56-6.13); NEUTROPHILS PERCENT AUTO 65.7 % (34.0-71.1); PLATELET COUNT,PLT 245 K/mm3 (182-369); RED BLOOD CELL COUNT 4.48 M/mm3 (3.98-5.22)
[2022-10-24 14:57] LABS: A/G RATIO 1.1 (1-2); ALANINE AMINOTRANSFERASE,ALT 28 U/L (14-59); ALBUMIN 3.8 g/dl (3.4-5.0); ALKALINE PHOSPHATASE 77 U/L (46-116); ANION GAP 13.5 (5-15); ASPARTATE AMNIOTRANSFERASE,AST 17 U/L (15-37); BILIRUBIN TOTAL 0.5 mg/dL (0.2-1.0); BLOOD UREA NITROGEN,BUN 21 mg/dL (7-18); C-REACTIVE PROTEIN <0.2 mg/dL (<1.0); CALCIUM 9.8 mg/dL (8.5-10.1); CARBON DIOXIDE,CO2 27 mEq/L (21-32); CHLORIDE,CL 105 mEq/L (98-107); ESTIMATED GFR 55 mL/min (>60); GLUCOSE RANDOM 98 mg/dL (70-99); POTASSIUM,K 4.5 mEq/L (3.5-5.1); PROTEIN TOTAL,TP 7.3 g/dl (6.4-8.2); SODIUM,NA 141 mEq/L (136-145)
[2022-10-24 15:41] LABS: APPEARANCE,URINE CLEAR (Clear); BILIRUBIN,URINE NEGATIVE (Negative); COLOR,URINE LIGHT YELLOW (Yellow); GLUCOSE,URINE NEGATIVE (Negative); KETONES,URINE NEGATIVE (Negative); LEUKOCYTE ESTERASE,URINE 2+ (Negative); NITRITE,URINE NEGATIVE (Negative); OCCULT BLOOD,URINE TRACE-INTACT (Negative); PROTEIN,URINE NEGATIVE (Negative); UROBILINOGEN,URINE 0.2 (0.2-1.0)
[2022-10-24 15:56] LABS: BACTERIA,URINE MANY /hpf (FEW); HYALINE CASTS,URINE 0-5 /lpf (0-5); MUCUS,URINE FEW /hpf (FEW); RBC,URINE 0-5 /hpf (0-5); SQUAMOUS EPITHELIAL CELLS,UR 0-5 /hpf (0-5); WBC,URINE 75-100 /hpf (0-5)
[2022-10-24] MEDS ORDERED: cefTRIAXone 1 GM in Sodium Chloride 0.9% 100 ML IV ONE (17:43)
[2022-10-24] MEDS ORDERED: HYDROmorphone 0.5 MG/0.5 ML Syringe IVPUSH ONE (17:43)
[2022-10-24] MEDS ORDERED: Ketorolac 15 MG/ML SDV IVPUSH ONE (17:43)
[2022-10-24] MEDS ORDERED: Sulfamethoxazole/Trimethoprim 800-160 MG Tab PO ONE (18:42)
[2022-10-24] MEDS: Nitrofurantoin Monohydrate/Macrocrystalline 100 MG Cap PO ONE ×2 (19:06→19:14)
[2022-10-24 20:26] VITALS: BP 147/73; PULSE 73
== END 2022-10-24 19:29 | disposition home or self-care (01) ==
LOC: JD.ED 13:24
DX: M48.54XA Collapsed vertebra, not elsewhere classified, thoracic region, initial encounter for fracture (principal); N30.00 Acute cystitis without hematuria; I48.91 Unspecified atrial fibrillation; M19.90 Unspecified osteoarthritis, unspecified site; E03.9 Hypothyroidism, unspecified; Z88.1 Allergy status to other antibiotic agents; Z88.2 Allergy status to sulfonamides; Z88.5 Allergy status to narcotic agent; Z79.82 Long term (current) use of aspirin; Z79.899 Other long term (current) drug therapy; Z79.01 Long term (current) use of anticoagulants
CPT/HCPCS: 36415; 72128; 72131; 72141; 74176; 80053; 81001; 85025; 85652; 86140; 87086; 87088; 87186; 96361; 96374; 96375; 99284; J1170; J1885; J3490; J7030; A9270-GY

== ENCOUNTER 2022-11-08 19:44 | Emergency (ER) | payer MEDICARE, BC ==
[2022-11-08] MEDS ORDERED: Diphtheria,Pertussis(Acell),Tetanus Vaccine 0.5 ML Syringe IM ONE (20:28)
[2022-11-08 20:39] LABS: BASOPHILS ABSOLUTE AUTO 0.06 K/mm3 (0.01-0.08); BASOPHILS PERCENT AUTO 0.6 % (0.1-1.2); EOSINOPHILS ABSOLUTE AUTO 0.29 K/mm3 (0.04-0.36); EOSINOPHILS PERCENT AUTO 2.9 (0.7-5.8); HEMATOCRIT 40.8 % (34.1-44.9); HEMOGLOBIN 13.4 gm/dl (11.2-15.7); IMMATURE GRAN ABSOLUTE AUTO 0.01 K/mm3 (0.00-0.10); IMMATURE GRAN PERCENT AUTO 0.1 % (<=1.0); LYMPHOCYTES ABSOLUTE AUTO 1.19 K/mm3 (1.18-3.74); MEAN CORPUSCULAR HEMOGLOBIN 31.5 pg (25.6-32.2); MEAN CORPUSCULAR HGB CONC 32.8 g/dl (32.2-35.5); MEAN PLATELET VOLUME 9.3 fl (9.4-12.3); MONOCYTES ABSOLUTE AUTO 1.08 K/mm3 (0.24-0.36); MONOCYTES PERCENT AUTO 10.9 % (4.7-12.5); NEUTROPHILS PERCENT AUTO 73.5 % (34.0-71.1); PLATELET COUNT,PLT 294 K/mm3 (182-369); RED BLOOD CELL COUNT 4.25 M/mm3 (3.98-5.22); WHITE BLOOD CELL COUNT,WBC 9.93 K/mm3 (3.98-10.04)
[2022-11-08 21:02] LABS: ALANINE AMINOTRANSFERASE,ALT 55 U/L (14-59); ALBUMIN 3.5 g/dl (3.4-5.0); ALKALINE PHOSPHATASE 146 U/L (46-116); ANION GAP 14.5 (5-15); ASPARTATE AMNIOTRANSFERASE,AST 20 U/L (15-37); BILIRUBIN TOTAL 0.3 mg/dL (0.2-1.0); BLOOD UREA NITROGEN,BUN 21 mg/dL (7-18); BUN/CREATININE RATIO 17.5 (14-18); C-REACTIVE PROTEIN <0.2 mg/dL (<1.0); CALCIUM 8.9 mg/dL (8.5-10.1); CARBON DIOXIDE,CO2 29 mEq/L (21-32); CHLORIDE,CL 104 mEq/L (98-107); CREATININE 1.2 mg/dL (0.55-1.02); EST CRCL DRUG DOSING (CG) 26.12 mL/min; ESTIMATED GFR 44 mL/min (>60); GLUCOSE RANDOM 118 mg/dL (70-99); POTASSIUM,K 4.5 mEq/L (3.5-5.1); SODIUM,NA 143 mEq/L (136-145); URIC ACID 4.2 mg/dL (2.6-6.0)
[2022-11-08 21:20] LABS: PROTEIN TOTAL,TP 7.2 g/dl (6.4-8.2)
[2022-11-08] MEDS ORDERED: Diclofenac Sodium 1% Gel 100 GM Tube TOP ONE (22:06)
[2022-11-08 22:43] VITALS: BP 148/91; PULSE 81
== END 2022-11-08 22:40 | disposition home or self-care (01) ==
LOC: JD.ED 19:44
DX: M15.1 Heberden's nodes (with arthropathy) (principal); E78.00 Pure hypercholesterolemia, unspecified; I48.91 Unspecified atrial fibrillation; E03.9 Hypothyroidism, unspecified; Z88.1 Allergy status to other antibiotic agents; Z88.5 Allergy status to narcotic agent; Z88.2 Allergy status to sulfonamides; Z79.82 Long term (current) use of aspirin; Z79.01 Long term (current) use of anticoagulants; Z79.899 Other long term (current) drug therapy
CPT/HCPCS: 36415; 73140-26-F7; 73140-F7; 80053; 84550; 85025; 86140; 90471; 90715; 99283; 99283-25; A9270-GY

== ENCOUNTER 2023-08-29 15:33 | Emergency (ER) | payer MEDICARE, BC ==
[2023-08-29] MEDS ORDERED: Diphtheria,Pertussis(Acell),Tetanus Vaccine 0.5 ML Syringe IM ONE (17:20)
[2023-08-29 19:04] VITALS: BP 146/88; PULSE 80
== END 2023-08-29 17:35 | disposition home or self-care (01) ==
LOC: JD.ED 15:33
DX: S81.812A Laceration without foreign body, left lower leg, initial encounter (principal); I48.91 Unspecified atrial fibrillation; E03.9 Hypothyroidism, unspecified; M19.90 Unspecified osteoarthritis, unspecified site; Z79.01 Long term (current) use of anticoagulants; Z79.82 Long term (current) use of aspirin; Z79.899 Other long term (current) drug therapy; Z88.5 Allergy status to narcotic agent; Z88.2 Allergy status to sulfonamides; Z88.1 Allergy status to other antibiotic agents; X58.XXXA Exposure to other specified factors, initial encounter
CPT/HCPCS: 99283

== ENCOUNTER 2023-12-05 23:39 | Emergency (ER) | payer MEDICARE, BC ==
[2023-12-06 01:06] LABS: BASOPHILS PERCENT AUTO 0.3 % (0.0-1.0); EOSINOPHILS PERCENT AUTO 0.1 % (0.0-6.0); HEMATOCRIT 43.5 % (37.0-47.0); HEMOGLOBIN 14.3 gm/dl (12.0-16.0); IMMATURE GRAN ABSOLUTE AUTO 0.03 K/mm3 (0.00-0.05); IMMATURE GRAN PERCENT AUTO 0.4 % (0.0-0.4); LYMPHOCYTES ABSOLUTE AUTO 0.7 K/mm3 (1.0-4.8); LYMPHOCYTES PERCENT AUTO 9.4 % (24.0-44.0); MEAN CORPUSCULAR HEMOGLOBIN 30.4 pg (28.0-32.0); MEAN CORPUSCULAR HGB CONC 32.9 g/dl (32.0-36.0); MEAN CORPUSCULAR VOLUME 92.6 fl (83.0-99.0); MONOCYTES ABSOLUTE AUTO 0.5 K/mm3 (0.0-0.8); MONOCYTES PERCENT AUTO 6.7 % (0.0-8.0); NEUTROPHILS ABSOLUTE AUTO 6.4 K/mm3 (1.8-7.7); NEUTROPHILS PERCENT AUTO 83.1 % (41.0-71.0); PLATELET COUNT,PLT 240 K/mm3 (150-400); WHITE BLOOD CELL COUNT,WBC 7.73 K/mm3 (3.9-11.3)
[2023-12-06] MEDS: Aspirin 81 MG Tab.Chew PO ONE (01:07)
[2023-12-06] MEDS: fentaNYL 100 MCG/2 ML SDV IVPUSH ONE (01:26)
[2023-12-06] MEDS: Sodium Chloride 0.9% 500 ML IV ONE (01:26)
[2023-12-06] MEDS: Iopamidol 755 Mg/ML 100 ML Bottle IVPUSH ONE (01:27)
[2023-12-06] MEDS: Sodium Chloride 0.9% 10 ML Syringe FLUSH ONE (01:27)
[2023-12-06] MEDS: Sodium Chloride 0.9% 10 ML Syringe FLUSH PRN (01:27)
[2023-12-06] MEDS: Sodium Chloride 0.9% 100 ML IV SCH (01:27)
[2023-12-06 01:31] LABS: A/G RATIO 1.2 (1-2); ALBUMIN 4.1 g/dl (3.4-5.0); ANION GAP 15.6 (5-15); BILIRUBIN TOTAL 0.3 mg/dL (0.2-1.0); BUN/CREATININE RATIO 25.7 (14-18); CALCIUM 9.6 mg/dL (8.5-10.1); CREATININE 1.4 mg/dL (0.55-1.02); EST CRCL DRUG DOSING (CG) 20.96 mL/min; MAGNESIUM 2.4 mg/dL (1.8-2.4); POTASSIUM,K 4.6 mEq/L (3.5-5.1); PROTEIN TOTAL,TP 7.5 g/dl (6.4-8.2)
[2023-12-06 01:40] LABS: APPEARANCE,URINE CLEAR (Clear); BILIRUBIN,URINE NEGATIVE (Negative); COLOR,URINE YELLOW (Yellow); GLUCOSE,URINE NEGATIVE (Negative); KETONES,URINE NEGATIVE (Negative); LEUKOCYTE ESTERASE,URINE TRACE (Negative); NITRITE,URINE NEGATIVE (Negative); OCCULT BLOOD,URINE NEGATIVE (Negative); PROTEIN,URINE NEGATIVE (Negative); UROBILINOGEN,URINE 0.2 (0.2-1.0)
[2023-12-06 01:53] LABS: RBC,URINE 0-5 /hpf (0-5); SQUAMOUS EPITHELIAL CELLS,UR 0-5 /hpf (0-5)
[2023-12-06 01:54] LABS: BACTERIA,URINE FEW /hpf (FEW); MUCUS,URINE FEW /hpf (FEW)
[2023-12-06] MEDS: Acetaminophen 325 MG Tab ONE (02:55)
[2023-12-06] MEDS: Acetaminophen 325 MG Tab PO ONE (02:55)
[2023-12-06 04:08] VITALS: BP 154/89; PULSE 77
== END 2023-12-06 04:00 | disposition home or self-care (01) ==
LOC: JD.ED 23:39
DX: R07.9 Chest pain, unspecified (principal); S22.058A Other fracture of T5-T6 vertebra, initial encounter for closed fracture; S22.068A Other fracture of T7-T8 thoracic vertebra, initial encounter for closed fracture; S22.078A Other fracture of T9-T10 vertebra, initial encounter for closed fracture; I48.91 Unspecified atrial fibrillation; K21.9 Gastro-esophageal reflux disease without esophagitis; I10 Essential (primary) hypertension; E78.5 Hyperlipidemia, unspecified; E03.9 Hypothyroidism, unspecified; R82.90 Unspecified abnormal findings in urine; Z90.710 Acquired absence of both cervix and uterus; Z79.899 Other long term (current) drug therapy; Z79.82 Long term (current) use of aspirin; Z79.01 Long term (current) use of anticoagulants; Z88.1 Allergy status to other antibiotic agents; Z88.2 Allergy status to sulfonamides; Z88.5 Allergy status to narcotic agent; X58.XXXA Exposure to other specified factors, initial encounter
CPT/HCPCS: 36415; 71275; 74177; 80053; 81001; 83690; 83735; 83880; 84484; 85025; 87086; 93005; 96360; 99285; A9270; J3490; J7030; Q9967

== ENCOUNTER 2024-03-24 13:53 | Emergency (ER) | payer MEDICARE, BC ==
[2024-03-24 14:12] VITALS: BP 148/87; PULSE 96
[2024-03-24 16:27] LABS: C-REACTIVE PROTEIN 6.19 mg/dL (<0.30)
== END 2024-03-24 17:18 | disposition home or self-care (01) ==
LOC: JD.ED 13:53
DX: R74.01 Elevation of levels of liver transaminase levels (principal); R79.82 Elevated C-reactive protein (CRP); R70.0 Elevated erythrocyte sedimentation rate; R74.8 Abnormal levels of other serum enzymes; I48.91 Unspecified atrial fibrillation; K21.9 Gastro-esophageal reflux disease without esophagitis; E03.9 Hypothyroidism, unspecified; Z90.49 Acquired absence of other specified parts of digestive tract; Z90.710 Acquired absence of both cervix and uterus; Z96.659 Presence of unspecified artificial knee joint; Z88.2 Allergy status to sulfonamides; Z88.1 Allergy status to other antibiotic agents; Z88.5 Allergy status to narcotic agent; Z88.8 Allergy status to other drugs, medicaments and biological substances; Z79.890 Hormone replacement therapy; Z79.01 Long term (current) use of anticoagulants; Z79.1 Long term (current) use of non-steroidal anti-inflammatories (NSAID); Z79.899 Other long term (current) drug therapy
CPT/HCPCS: 36415; 74176; 74176-26; 82977; 83690; 85652; 86140; 99283; 99284

== ENCOUNTER 2024-05-24 08:23 | Inpatient (IN) | payer MEDICARE, BC ==
[2024-05-24 08:50] LABS: BASOPHILS ABSOLUTE AUTO 0.1 K/mm3 (0.0-0.2); BASOPHILS PERCENT AUTO 0.6 % (0.0-1.0); EOSINOPHILS ABSOLUTE AUTO 0.3 K/mm3 (0.0-0.4); EOSINOPHILS PERCENT AUTO 1.8 % (0.0-6.0); HEMATOCRIT 45.9 % (37.0-47.0); HEMOGLOBIN 15.2 gm/dl (12.0-16.0); IMMATURE GRAN ABSOLUTE AUTO 0.06 K/mm3 (0.00-0.05); IMMATURE GRAN PERCENT AUTO 0.4 % (0.0-0.4); LYMPHOCYTES ABSOLUTE AUTO 1.1 K/mm3 (1.0-4.8); LYMPHOCYTES PERCENT AUTO 6.9 % (24.0-44.0); MEAN CORPUSCULAR HGB CONC 33.1 g/dl (32.0-36.0); MEAN CORPUSCULAR VOLUME 93.7 fl (83.0-99.0); MEAN PLATELET VOLUME 10.5 fl (9.4-12.3); MONOCYTES ABSOLUTE AUTO 0.7 K/mm3 (0.0-0.8); MONOCYTES PERCENT AUTO 4.5 % (0.0-8.0); NEUTROPHILS ABSOLUTE AUTO 13.5 K/mm3 (1.8-7.7); NEUTROPHILS PERCENT AUTO 85.8 % (41.0-71.0); PLATELET COUNT,PLT 249 K/mm3 (150-400); WHITE BLOOD CELL COUNT,WBC 15.69 K/mm3 (3.9-11.3)
[2024-05-24] MEDS: Ondansetron 4 MG/2 ML SDV IVPUSH ONE (09:15)
[2024-05-24 09:16] LABS: PROTHROMBIN TIME 10.6 SECONDS (9.7-12.0)
[2024-05-24 09:18] LABS: PTT,PARTIAL THROMBOPLSTIN TIME 27.6 SECONDS (21.7-31.4)
[2024-05-24 09:21] LABS: A/G RATIO 1.2 (1-2); ALBUMIN 4.1 g/dl (3.4-5.0); ANION GAP 13.9 (5-15); BILIRUBIN TOTAL 0.6 mg/dL (0.2-1.0); CALCIUM 9.1 mg/dL (8.5-10.1); CREATININE 0.9 mg/dL (0.55-1.02); EST CRCL DRUG DOSING (CG) 31.04 mL/min; MAGNESIUM 1.9 mg/dL (1.8-2.4); POTASSIUM,K 3.9 mEq/L (3.5-5.1); PROTEIN TOTAL,TP 7.6 g/dl (6.4-8.2)
[2024-05-24] MEDS ORDERED: Sodium Chloride 0.9% 1,000 ML IV SCH (09:30)
[2024-05-24 10:01] LABS: LACTIC ACID 0.5 mmol/L (0.4-2.0)
[2024-05-24] MEDS ORDERED: Piperacillin/Tazobactam 4.5 GM in Sodium Chloride 0.9% 100 ML IV ONE (10:12)
[2024-05-24] MEDS: Acetaminophen 325 MG Tab PO ONE (10:51)
[2024-05-24] MEDS: Sodium Chloride 0.9% 1,000 ML IV SCH ×2 (10:53→17:24)
[2024-05-24] MEDS ORDERED: Apixaban 2.5 MG Tab PO ONE (10:59)
[2024-05-24] MEDS: Piperacillin/Tazobactam 4.5 GM Vial IV ONE (11:21)
[2024-05-24 12:22] LABS: APPEARANCE,URINE CLEAR (Clear); BILIRUBIN,URINE NEGATIVE (Negative); COLOR,URINE YELLOW (Yellow); GLUCOSE,URINE NEGATIVE (Negative); KETONES,URINE NEGATIVE (Negative); LEUKOCYTE ESTERASE,URINE TRACE (Negative); NITRITE,URINE POSITIVE (Negative); OCCULT BLOOD,URINE TRACE-INTACT (Negative); PROTEIN,URINE TRACE (Negative); UROBILINOGEN,URINE 0.2 (0.2-1.0)
[2024-05-24] MEDS ORDERED: Albuterol 0.083% 2.5 MG/3 ML Neb Soln NEB PRN (12:35)
[2024-05-24] MEDS ORDERED: Ondansetron 4 MG Tab.DIS PO PRN (12:35)
[2024-05-24] MEDS ORDERED: Ondansetron 4 MG/2 ML SDV IV PRN (12:35)
[2024-05-24] MEDS ORDERED: Acetaminophen 325 MG Tab PO PRN (12:35)
[2024-05-24] MEDS ORDERED: Albuterol/Ipratropium 3.0-0.5 MG/3 ML Neb Soln NEB PRN (12:35)
[2024-05-24] MEDS ORDERED: Docusate Sodium 100 MG Cap PO PRN (12:35)
[2024-05-24] MEDS ORDERED: Polyethylene Glycol 3350 Powder 17 GM Packet PO PRN (12:35)
[2024-05-24 12:47] LABS: BACTERIA,URINE MANY /hpf (FEW); MUCUS,URINE RARE /hpf (FEW); RBC,URINE 0-5 /hpf (0-5); SQUAMOUS EPITHELIAL CELLS,UR 0-5 /hpf (0-5)
[2024-05-24] MEDS: APIXABAN 2.5 MG PO ONE (13:38)
[2024-05-24] MEDS ORDERED: cefTRIAXone 1 GM in Sodium Chloride 0.9% 50 ML IV SCH (14:30)
[2024-05-24] MEDS: cefTRIAXone 1 GM Vial IVPUSH SCH (17:24)
[2024-05-24] MEDS: Aspirin 81 MG Tab.Chew PO SCH (22:51)
[2024-05-24] MEDS: Apixaban 2.5 MG Tab PO SCH (22:52)
[2024-05-24] MEDS: Acetaminophen 325 MG Tab PO PRN (22:53)
[2024-05-24] MEDS: LORazepam 2 MG/ML SDV IVPUSH PRN (22:54)
[2024-05-25 04:58] LABS: BASOPHILS ABSOLUTE AUTO 0.1 K/mm3 (0.0-0.2); BASOPHILS PERCENT AUTO 0.6 % (0.0-1.0); EOSINOPHILS ABSOLUTE AUTO 0.2 K/mm3 (0.0-0.4); EOSINOPHILS PERCENT AUTO 1.6 % (0.0-6.0); HEMATOCRIT 35.9 % (37.0-47.0); HEMOGLOBIN 11.6 gm/dl (12.0-16.0); IMMATURE GRAN ABSOLUTE AUTO 0.03 K/mm3 (0.00-0.05); IMMATURE GRAN PERCENT AUTO 0.3 % (0.0-0.4); LYMPHOCYTES ABSOLUTE AUTO 1.3 K/mm3 (1.0-4.8); LYMPHOCYTES PERCENT AUTO 12.1 % (24.0-44.0); MEAN CORPUSCULAR HEMOGLOBIN 30.5 pg (28.0-32.0); MEAN CORPUSCULAR HGB CONC 32.3 g/dl (32.0-36.0); MEAN CORPUSCULAR VOLUME 94.5 fl (83.0-99.0); MEAN PLATELET VOLUME 10.6 fl (9.4-12.3); MONOCYTES PERCENT AUTO 8.9 % (0.0-8.0); NEUTROPHILS ABSOLUTE AUTO 8.2 K/mm3 (1.8-7.7); NEUTROPHILS PERCENT AUTO 76.5 % (41.0-71.0); PLATELET COUNT,PLT 167 K/mm3 (150-400); WHITE BLOOD CELL COUNT,WBC 10.73 K/mm3 (3.9-11.3)
[2024-05-25 05:33] LABS: A/G RATIO 0.9 (1-2); ALBUMIN 2.6 g/dl (3.4-5.0); ANION GAP 13.6 (5-15); BILIRUBIN TOTAL 0.6 mg/dL (0.2-1.0); CREATININE 0.9 mg/dL (0.55-1.02); EST CRCL DRUG DOSING (CG) 31.04 mL/min; MAGNESIUM 1.9 mg/dL (1.8-2.4); PHOSPHORUS 3.5 mg/dL (2.6-4.7); POTASSIUM,K 4.6 mEq/L (3.5-5.1); PROTEIN TOTAL,TP 5.4 g/dl (6.4-8.2)
[2024-05-25] MEDS: Pantoprazole 40 MG Tab.CR PO SCH (06:11)
[2024-05-25] MEDS: Levothyroxine 112 MCG Tab PO SCH (06:12)
[2024-05-25] MEDS: Cyanocobalamin (Vitamin B12) 1,000 MCG Tab PO SCH (08:38)
[2024-05-25 08:40] VITALS: BP 114/64; PULSE 68
[2024-05-25] MEDS: Polyethylene Glycol 3350 Powder 17 GM Packet PO SCH (08:40)
[2024-05-25] MEDS: Diltiazem 120 MG Cap.CD PO SCH (08:40)
[2024-05-25] MEDS: Sennosides/Docusate Sodium 50-8.6 MG Tab PO SCH (08:40)
[2024-05-25] MEDS ORDERED: Diltiazem 120 MG Cap.CD PO SCH (09:00)
[2024-05-25] MEDS ORDERED: Non-Formulary Medication 1 Each (Omeprazole 20 MG Capsule.Dr) PO SCH (09:00)
[2024-05-27] MEDS ORDERED: Levothyroxine 112 MCG Tab PO SCH (07:00)
== END 2024-05-25 10:15 | disposition home or self-care (01) | DRG 871 ==
LOC: JD.ED 08:23 → JD.MS 12:34
PROVIDERS: ADMIT Student in an Organized Health Care Education/Training Program; ATTEND Student in an Organized Health Care Education/Training Program
DX: A41.9 Sepsis, unspecified organism (principal); E78.00 Pure hypercholesterolemia, unspecified; J18.9 Pneumonia, unspecified organism; N30.01 Acute cystitis with hematuria; R65.20 Severe sepsis without septic shock; I48.91 Unspecified atrial fibrillation; Z79.890 Hormone replacement therapy; E78.5 Hyperlipidemia, unspecified; M81.0 Age-related osteoporosis without current pathological fracture; F41.9 Anxiety disorder, unspecified; Z88.2 Allergy status to sulfonamides; F32.A Depression, unspecified; E03.9 Hypothyroidism, unspecified; Z96.659 Presence of unspecified artificial knee joint; H26.9 Unspecified cataract; Z98.49 Cataract extraction status, unspecified eye; Z90.49 Acquired absence of other specified parts of digestive tract; Z87.81 Personal history of (healed) traumatic fracture; Z90.710 Acquired absence of both cervix and uterus; Z88.8 Allergy status to other drugs, medicaments and biological substances; Z88.1 Allergy status to other antibiotic agents; Z88.6 Allergy status to analgesic agent; Z79.2 Long term (current) use of antibiotics; Z79.01 Long term (current) use of anticoagulants; Z79.899 Other long term (current) drug therapy; Z88.5 Allergy status to narcotic agent; Z86.711 Personal history of pulmonary embolism; Z91.013 Allergy to seafood; Z98.1 Arthrodesis status; Z98.890 Other specified postprocedural states; Z79.82 Long term (current) use of aspirin
CPT/HCPCS: 36415; 71045; 72170; 80053; 81001; 83605; 83735; 83880; 84484 ×2; 85025; 85610; 85730; 86140; 86738; 87040 ×2; 87086; 87088; 87186; 87428; 87899; 93005; A9270; J2405; J2543; J7030; 84100; 85379; 93010; 94667; 94668; 94760; 94761; 97110-GP; 97116-GP; 97161-GP; 99223; 99239; 99284; J0696; J2060

== ENCOUNTER 2025-01-07 11:05 | Emergency (ER) | payer MEDICARE, BC ==
[2025-01-07] MEDS: Acetaminophen/oxyCODONE 325-5 MG Tab PO ONE (14:21)
[2025-01-07 16:19] VITALS: BP 143/85; PULSE 73
== END 2025-01-07 15:40 | disposition home or self-care (01) ==
LOC: JD.ED 11:05
DX: M25.552 Pain in left hip (principal); M25.562 Pain in left knee; E78.00 Pure hypercholesterolemia, unspecified; E03.9 Hypothyroidism, unspecified; Z90.49 Acquired absence of other specified parts of digestive tract; Z88.8 Allergy status to other drugs, medicaments and biological substances; Z88.5 Allergy status to narcotic agent; Z79.890 Hormone replacement therapy; Z79.82 Long term (current) use of aspirin; Z79.899 Other long term (current) drug therapy; Z90.710 Acquired absence of both cervix and uterus; W07.XXXA Fall from chair, initial encounter
CPT/HCPCS: 72170; 73560; 99284; A9270